=== PATIENT | male | born 2000 | race Caucasian/White ===

== ENCOUNTER 2020-08-04 17:23 | Emergency (ER) | payer OTHER ==
[~2020-08-04] VITALS: Ht 157.5 cm; Wt 78.0 kg
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
[2020-08-04 19:54] VITALS: BP 138/67
--- NOTE | 2020-08-05 13:11 | ED PDOC ---
Post-Departure Follow-Up ruddy alan faxed formal report of ct head for fu Gene Santiago MD Aug 05, 2020 13:11
== END 2020-08-04 19:55 | disposition home or self-care (01) ==
LOC: M ED 17:23
DX: S09.90XA Unspecified injury of head, initial encounter (principal); R93.0 Abnormal findings on diagnostic imaging of skull and head, not elsewhere classified; W22.8XXA Striking against or struck by other objects, initial encounter; Y92.89 Other specified places as the place of occurrence of the external cause; Y93.9 Activity, unspecified; Y99.1 Military activity; F17.200 Nicotine dependence, unspecified, uncomplicated

== ENCOUNTER 2025-10-02 06:28 | Emergency (ER) | payer OTHER ==
[~2025-10-02] VITALS: Ht 157.5 cm; Wt 85.7 kg
[2025-10-02] MEDS: NS (Normal Saline) 0.9% 1,000 ML IV ONE (07:25)
[2025-10-02 07:58] LABS: BASO # 0.1 10^3/uL (0.0-0.2); BASO % 1.1 % (0.0-1.0); EOS # 0.1 10^3/uL (0.0-0.5); EOS % 1.4 % (0.0-3.0); LYMPH # 1.9 10^3/uL (1.5-5.0); LYMPH % 29.1 % (24.0-44.0); MONO # 0.6 10^3/uL (0.0-0.8); MONO % 9.0 % (2.0-8.0); NEUTROPHILS # 3.9 10^3/uL (1.5-8.5); NEUTROPHILS % 58.6 % (36.0-66.0); PLATELET COUNT, AUTOMATED 251 10^3/uL (150-450)
[2025-10-02 08:21] LABS: ALT/SGPT 34 U/L (7.0-40); AST/SGOT 28 U/L (<34); CALCIUM LEVEL 8.9 MG/DL (8.5-10.1); CARBON DIOXIDE LEVEL 27 MMOL/L (20-31); CHLORIDE LEVEL 104 MMOL/L (98-107); CREATININE FOR GFR 0.68 MG/DL (0.70-1.30); GLOMERULAR FILTRATION RATE > 90.0 (>60); MAGNESIUM LEVEL 2.0 MG/DL (1.8-2.4); POTASSIUM SERUM 4.1 MMOL/L (3.5-5.1); SODIUM LEVEL 139 MMOL/L (136-145)
[2025-10-02] MEDS ORDERED: ISOVUE-370 76% 100 ML VIAL As Ordered ONE (08:32)
[2025-10-02 11:06] VITALS: BP 116/57; TEMP 97.4; O2SAT 99
== END 2025-10-02 11:24 | disposition home or self-care (01) ==
LOC: M ED 06:28
DX: R19.7 Diarrhea, unspecified (principal)
CPT/HCPCS: 74177; 80053; 83605; 83690; 83735; 85025; 87486; 87507; 87581; 87633; 87798; 99284; Q9967